=== PATIENT | female | born 1970 | race Hispanic/Latino ===

== ENCOUNTER 2017-03-16 18:24 | Emergency (ER) | payer OTHER ==
[2017-03-16] MEDS ORDERED: FLUORESCEIN 1 MG EYE STRIP RIGHT EYE ONE (18:37)
[2017-03-16] MEDS ORDERED: Tetracaine Ophth Soln 0.5% 40 DRP/4 ML BOTTLE RIGHT EYE ONE (18:37)
[2017-03-16 18:38] VITALS: RESP 20; TEMP 96.8
[2017-03-16] MEDS ORDERED: GENTAMICIN SULFATE 0.3% RIGHT EYE SCH (19:00)
[2017-03-16] MEDS ORDERED: EYE RIGHT EYE SCH (19:00)
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
== END 2017-03-16 19:02 | disposition home or self-care (01) ==
LOC: ER 18:24
DX: S05.01XA Injury of conjunctiva and corneal abrasion without foreign body, right eye, initial encounter (principal); H57.8 Other specified disorders of eye and adnexa
CPT/HCPCS: 99282

== ENCOUNTER 2017-03-18 13:14 | Emergency (ER) | payer OTHER ==
[2017-03-18] MEDS ORDERED: FLUORESCEIN 1 MG EYE STRIP RIGHT EYE ONE (13:37)
[2017-03-18] MEDS ORDERED: Tetracaine Ophth Soln 0.5% 40 DRP/4 ML BOTTLE RIGHT EYE ONE (13:37)
[2017-03-18 14:20] VITALS: RESP 16; TEMP 97.9
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
== END 2017-03-18 14:40 | disposition home or self-care (01) ==
LOC: ER 13:18
DX: S05.01XA Injury of conjunctiva and corneal abrasion without foreign body, right eye, initial encounter (principal); H57.11 Ocular pain, right eye; H53.8 Other visual disturbances
CPT/HCPCS: 99282